=== PATIENT | male | born 1970 | race Native Hawaiian/Other Pacific Islander ===

== ENCOUNTER 2018-11-23 11:05 | Emergency (ER) | payer BC ==
[~2018-11-23] VITALS: Ht 144.8 cm; Wt 70.3 kg
[2018-11-23 11:39] LABS: PLATELET COUNT 224 K/uL (142-355)
[2018-11-23 12:11] LABS: POTASSIUM 3.8 mmol/L (3.6-5.2); SODIUM 136 mmol/L (136-145)
[2018-11-23 14:25] VITALS: BP 105/64; TEMP 97.6
== END 2018-11-23 14:25 | disposition home or self-care (01) ==
LOC: ED 11:05
PROVIDERS: Family Medicine
DX: K29.70 Gastritis, unspecified, without bleeding (principal); L23.7 Allergic contact dermatitis due to plants, except food
CPT/HCPCS: 80053; 84484; 85027; 93005; 96374; 99284; J2930